=== PATIENT | male | born 1985 | race Caucasian/White ===

== ENCOUNTER 2019-11-30 00:44 | Emergency (ER) | payer MEDICAID ==
[~2019-11-30] VITALS: Ht 177.8 cm; Wt 81.6 kg
[~2019-11-30 00:44] MED LIST: CITA10TA17 PO
--- NOTE | 2019-11-30 01:00 | NUR ---
Patient to ER bed 6 to gown for evaluation. Side rails up.
[2019-11-30 01:01] VITALS: BP_SYST 160
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
--- NOTE | 2019-11-30 01:20 | NUR ---
ER Dr. ray at bedside examining patient.
[2019-11-30] MEDS ORDERED: BACITRACIN 1 GM OINT TP ONE (01:30)
[2019-11-30] MEDS ORDERED: LIDOCAINE/EPI 1% 1:100000 20 ML VIAL INJ ONE (01:30)
--- NOTE | 2019-11-30 01:42 | NUR ---
dr. ray at bedside performing laceration repair.
--- NOTE | 2019-11-30 01:55 | NUR ---
Patient has a 3 cm laceration to left cheek. applied applied 6 sutures using sterile technique. Edges well approximated. Site cleansed with iodine and normal saline. Dressing of non adherent applied to site. No bleeding noted. Pt tolerated well.
[2019-11-30 02:10] VITALS: BP_SYST 135
--- NOTE | 2019-11-30 02:10 | NUR ---
Patient given written and verbal discharge instructions and verbalizes understanding. ER MD discussed with patient the results and treatment provided. Patient in stable condition. ID arm band removed. No Rx given. Patient educated on pain management and to follow up with PMD. Pain Scale 2/10. Opportunity for questions provided and answered. Medication side effect fact sheet provided.
== END 2019-11-30 02:10 | disposition home or self-care (01) ==
LOC: SED 00:44
DX: S01.412A Laceration without foreign body of left cheek and temporomandibular area, initial encounter (principal); S60.221A Contusion of right hand, initial encounter; S50.02XA Contusion of left elbow, initial encounter; Y04.0XXA Assault by unarmed brawl or fight, initial encounter; Y93.89 Activity, other specified; Y92.89 Other specified places as the place of occurrence of the external cause; Y99.8 Other external cause status
CPT/HCPCS: 99282

== ENCOUNTER 2019-12-06 14:23 | Emergency (ER) | payer MEDICAID ==
[~2019-12-06] VITALS: Ht 177.8 cm; Wt 81.6 kg
[2019-12-06 14:28] VITALS: BP_SYST 145
--- NOTE | 2019-12-06 14:30 | NUR ---
Norman martin in EDM - 12/06/19 at 1441 by [email or web address] Pt brought by self , A&Ox4, ambulatory , pt presents to ER for sutures removal from face, no s/s of infection , afebrile, will cont to monitor.
--- NOTE | 2019-12-06 14:33 | NUR ---
Patient to ER chair for evaluation. Side rails up. Report given to JEREMY Vogel.
--- NOTE | 2019-12-06 14:34 | NUR ---
Pt brought by self , A&Ox4, ambulatory , pt presents to ER for sutures removal from face, no s/s of infection , afebrile, will cont to monitor.
--- NOTE | 2019-12-06 14:35 | NUR ---
ER at chair examining patient.
--- NOTE | 2019-12-06 14:36 | NUR ---
Dr. Coe at chair removing sutures.
[2019-12-06 14:44] VITALS: BP_SYST 142
--- NOTE | 2019-12-06 14:45 | NUR ---
Patient given written and verbal discharge instructions and verbalizes understanding. ER MD discussed with patient the results and treatment provided. Patient in stable condition. ID arm band removed. No Rx given. Patient educated on pain management and to follow up with PMD. Pain Scale 0/10 Opportunity for questions provided and answered. Medication side effect fact sheet provided.
== END 2019-12-06 14:44 | disposition home or self-care (01) ==
LOC: SED 14:23
DX: S01.412D Laceration without foreign body of left cheek and temporomandibular area, subsequent encounter (principal); X58.XXXD Exposure to other specified factors, subsequent encounter
CPT/HCPCS: 99281